=== PATIENT | male | born 1975 | race African-American/Black ===

== ENCOUNTER → 2020-02-03 | Day surgery (SDC) | payer OTHER ==
[~2020-02-03] VITALS: Ht 193 cm; Wt 120.2 kg
[~2020-02-03] MED LIST: B&O 60MG R/S 60 MG SUPP PR ONE; BUPIVACAINE 0.25% 30ML SDV INJ ONE; CEFAZOLIN SOD 1 GM/NS 50ML 50 ML IV ONE; DEXAMETHASONE SOD PHOS INJ 4 MG/ML VIAL ONE; EPHEDRINE SULFATE INJ 50 MG/ML VIAL ONE; FENTANYL CITRATE/PF 100MCG/2 ML INJ ONE; FLOMAX0.4 MG PO; GENTAMICIN 80MG/NS 100 ML 200 ML IV ONE; IOPAMIDOL 300MG/ML 50ML INFUS..BTL IV ONE; LIDOCAINE HCL 2% LOCAL INJ 5 ML SDV VIAL INJ ONE; LIPITOR20 MG PO; METFORMIN HCL500 MG PO; MIDAZOLAM HCL 2 MG/2 ML VIAL ONE; NEOSTIGMINE 1 MG/ML 10ML VIAL ONE; ONDANSETRON HCL INJ 2MG/ML 2ML 2 MG/ML VIAL ONE; PROPOFOL IV EMULSION 10 MG/ML 20 ML VIAL ONE; SEVOFLURANE INHAL SOLN 250 ML PEN BTL ONE
[2020-02-03 12:40] LABS: ANION GAP 15.9 mmol/L (8-16); BLOOD UREA NITROGEN 11 mg/dL (7-26); BUN/CREATININE RATIO 10 (6-25); CALCIUM 9.6 mg/dL (8.4-10.2); CARBON DIOXIDE 23 mmol/L (22-29); CHLORIDE 106 mmol/L (98-107); CREATININE, SERUM 1.12 mg/dL (0.72-1.25); EST GLOMERULAR FILTRATION RATE > 60 ML/MIN (60-); GLUCOSE 91 mg/dL (74-118); POTASSIUM 3.9 mmol/L (3.5-5.1); SODIUM 141 mmol/L (136-145)
[2020-02-03 15:30] VITALS: BP 138/81
--- NOTE | 2020-02-04 20:19 | Operative Report ---
DATE OF PROCEDURE: 02/03/2020 SURGEON: Hammad De La Fuente MD PREOPERATIVE DIAGNOSES: 1. Phimosis and redundant foreskin. 2. Obstructive benign prostatic hyperplasia. 3. Urinary tract infections. POSTOPERATIVE DIAGNOSES: 1. Phimosis and redundant foreskin. 2. Obstructive benign prostatic hyperplasia. 3. Urinary tract infections. 4. 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 5. Mass effect in the upper pole calyx on the left hand side. OPERATION PERFORMED: 1. Circumcision. 2. Regional nerve block (separate procedure performed for postoperative pain control and not required for the actual performance of the surgery, which was done under general anesthesia). 3. Cystourethroscopy with bilateral ureteral catheterization and retrograde ureteropyelography (separate procedure performed for the urinary tract infection). 4. Interpretation of retrograde ureteropyelography, no radiologist is present. 5. Supervision of fluoroscopy, no radiologist is present. 6. Cystourethroscopy with implantation of UroLift implants x4 for BPH. ANESTHESIA: General. COMPLICATIONS: None. CLINICAL SUMMARY: Vinicius Xavier is a 45-year-old man with the above preoperative diagnoses. The patient has been considering undergoing circumcision, however, for surgery, the patient signed to consent for that procedure and instructed that he definitely want to proceed with circumcision. and potentially will be significant issue through the patient's diabetes. The patient also brought for management of his obstructive BPH implant. He is aware of the risks of bleeding, infection, injury to adjacent structures, need for additional procedures and elected to proceed. OPERATIVE PROCEDURE IN DETAIL: Informed consent was verified. Vinicius Xavier was properly identified, taken to the operating room, placed on the operating table in supine position, anesthesia was uneventfully begun. The patient's genitalia were prepared and draped in usual sterile fashion. Marcaine without epinephrine was utilized to infiltrate subcutaneously circumferentially at the base of the penis as well as in the region of the dorsal penile nerves. This is done for postoperative pain control and is not required for the actual performance of the surgery, which was done under general anesthesia. A circumferential incision was then made overlying the warren of the glans penis. The foreskin was fully retracted and secondary incision made approximately 5 mm away from the warren of the glans penis along the inner preputial skin and was performed. A sleeve circumcision was then performed. The foreskin was removed. Pinpoint electrocautery was utilized to achieve hemostasis. The patient's incision was then approximated with 4-0 chromic suture in running fashion with an excellent cosmetic result. The patient was then carefully, gently repositioned in dorsal lithotomy position. He was redraped. The cystoscope sheath with visual obturator in place was atraumatically inserted into the patient's urethra, it was guided down the unremarkable distal urethra through normal sphincteric region, through the prostate bed, which was significant for trilobar prostatic hypertrophy with small median lobe that was not intravesical and kissing lateral lobes with visual obstruction. We entered the patient's bladder and drained it. Panendoscopy revealed grade 1-2 trabeculations, but no tumors, no stones, lesions were identified. Ureteral catheter was used to cannulate each ureter and retrograde ureteral pyelograms were performed. Interpretation of retrograde ureteropyelography contrast was instilled in retrograde fashion bilaterally. In the distal right ureter, we identified a small outpocketing, which technically could be listed as a diverticulum, but could be a late branching of the ureteral, but that never matured. The collecting system on the right hand side was unremarkable. The left ureter was unremarkable. 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 There was an obvious mass effect in the upper pole calyx , which needs further evaluation. Unobstructed drainage was observed bilaterally fluoroscopically. We introduced the UroLift cystoscope and proceeded with deploying lower UroLift implant anterolaterally to replace 1.5 cm distal to the bladder neck and to replace at the level of verumontanum. An excellent opening of the prostatic bed was achieved. The patient's bladder was drained, the cystoscope was withdrawn. Belladonna and opium suppository were placed revealing a 35 g prostate that is smooth and nonfluctuant and without any nodules. Sterile dressing was applied with bacitracin ointment followed by Xeroform gauze, followed by loose-fitting plain and the patient was uneventfully reversed from anesthesia and taken to the recovery room in stable condition. There were no complications to the procedure. The patient tolerated the procedure well. PLAN: We will order renal ultrasound to evaluate the mass effect of the upper pole on the left hand side. We will also follow the patient up for uroflowmetry and bladder ultrasonography in approximately 1 month. Hammad MD FALLON De La Fuente/SURENDRA /[id number]
== END | disposition home or self-care (01) ==
LOC: OR 11:58
PROVIDERS: ATTEND Urology
DX: N47.1 Phimosis (principal); N40.1 Benign prostatic hyperplasia with lower urinary tract symptoms; N39.0 Urinary tract infection, site not specified; N13.8 Other obstructive and reflux uropathy; Q62.5 Duplication of ureter; N32.89 Other specified disorders of bladder; N28.89 Other specified disorders of kidney and ureter; E11.9 Type 2 diabetes mellitus without complications; I10 Essential (primary) hypertension; Z01.810 Encounter for preprocedural cardiovascular examination; Z01.812 Encounter for preprocedural laboratory examination; Z11.59 Encounter for screening for other viral diseases; Z79.84 Long term (current) use of oral hypoglycemic drugs; Z86.73 Personal history of transient ischemic attack (TIA), and cerebral infarction without residual deficits
CPT/HCPCS: 52005; 54161; C9740; 36415; 74420; 80048; 82948; 88304; 93005; C1758; J0690; J1100; J1580; J2001; J2250; J2405; J2710; J3010; L8699; U0002